=== PATIENT | female | born 1955 | race Caucasian/White ===

== ENCOUNTER → 2016-11-20 | Outpatient (CLI) | payer BC ==
--- NOTE | 2016-11-20 17:35 | MA ---
Screening Digital Mammogram With iCAD Indication: Routine screening. Technique: Standard cephalocaudal and mediolateral oblique projections are obtained. This examinati on is processed by the iCAD computer-aided detection system. Comparison: April 2015, March 2014, December 2012 and August 2011 Breast density: Type B. Findings: CAD was reviewed. No suspicious microcalcifications, mass, or architectural distortion. Impression: Negative mammogram BI-RADS: 1 - Negative Recommendation: Routine screening is recommended in one year. [facility] will send a result letter to the patient. Negative mammography should not preclude additional workup of a clinically suspicious finding. The patient's information is entered into a reminder system with a target due date for her next mammo gram.
== END ==
LOC: FIMAGING 13:23
DX: Z12.31 Encounter for screening mammogram for malignant neoplasm of breast (principal)
CPT/HCPCS: G0202

== ENCOUNTER → 2017-08-07 | Outpatient (CLI) | payer BC | LOC: FIMAGING 11:30 | DX: R22.1 Localized swelling, mass and lump, neck (principal) ==

== ENCOUNTER 2018-01-10 02:34 | Emergency (ER) | payer BC ==
[2018-01-10 02:46] VITALS: TEMP 97.5
[2018-01-10 02:47] VITALS: O2SAT 90
--- NOTE | 2018-01-10 03:51 | EDPHY ---
H & P Stated Complaint: rectal bleeding Time Seen by Provider: 01/10/18 02:57 HPI/ROS: Daughter provides sign language interpretation. HPI The patient presents with rectal bleeding which has been present since 6:00 p.m. Though has now mostly stopped. About 2 weeks ago she was diagnosed with an abnormal growth near her rectum by a associate professor of history. She was referred to a general surgeon, though has not ate a follow-up appointment. She tonight noticed spontaneous bleeding from the area. This was not painful at all. She has no prior history of similar. REVIEW OF SYSTEMS Constitutional: No fever, no chills. Eyes: No discharge. ENT: No sore throat. Cardiovascular: No chest pain, no palpitations. Respiratory: No cough, no shortness of breath. Gastrointestinal: No abdominal pain, no vomiting. Genitourinary: No hematuria. Musculoskeletal: No back pain. Skin: No rashes. Neurological: No headache. PMHx: Deafness, asthma, hypertension Soc Hx: Lives at home with family PHYSICAL General Appearance: Alert, no distress Eyes: Pupils equal and round no pallor or injection ENT, Mouth: Mucous membranes moist Respiratory: There are no retractions, lungs are clear to auscultation Cardiovascular: Regular rate and rhythm Gastrointestinal: Abdomen is soft and non-tender, no masses, bowel sounds normal Rectal: At approximately 2 o'clock about 5 cm from the anal verge there is a 2 cm hemorrhoid which is reddish purple, slightly firm, slightly tender to palpation Neurological: A&O, moves all extremities Skin: Warm and dry, no rashes Musculoskeletal: Neck is supple non tender Extremities: symmetrical, full range of motion Psychiatric: Patient is oriented X 3, there is no agitation Source: Patient Exam Limitations: No limitations - Personal History Current Tetanus/Diphtheria Vaccine: Unsure - Medical/Surgical History Hx Asthma: Yes Hx Chronic Respiratory Disease: No Hx Diabetes: No Hx Cardiac Disease: No Hx Renal Disease: No Hx Cirrhosis: No Hx Alcoholism: No Hx HIV/AIDS: No Hx Splenectomy or Spleen Trauma: No Other PMH: Deaf. asthma, copd, htn, cilia immune syndrome, FIBROMYALGIA, BRONCHIECISIS- NEEDS O2 - Social History Smoking Status: Never smoked Constitutional: Initial Vital Signs Temperature (C) 36.4 C 01/10/18 02:40 Heart Rate 74 01/10/18 02:40 Respiratory Rate 20 01/10/18 02:40 Blood Pressure 137/68 H 01/10/18 02:40 O2 Sat (%) 90 L 01/10/18 02:40 O2 Delivery Mode Room Air Allergies/Adverse Reactions: Penicillins Allergy (Unknown, Verified 01/10/18 02:38) Home Medications: Medication Instructions Recorded Levothyroxine [Synthroid] 25 mcg PO DAILY 06/27/11 Losartan Potassium 50 mg PO 06/27/11 Cyclobenzaprine 01/10/18 DULoxetine 01/10/18 Proair Hfa 01/10/18 Spironolactone 01/10/18 traMADol 01/10/18 Medical Decision Making Differential Diagnosis: 62-year-old female with 2 weeks of growth on her buttocks now presents with bleeding from this. On exam, it appears to be an external hemorrhoid which is thrombosed, however location is distal to the anal verge which is unusual. This could be a skin tag, however would not expect bleeding from this. Doubt abscess. Given that the patient is not having much pain or tenderness I will not excise the clot. I will refer the patient to Dr. Carson who is her primary general surgeon for further evaluation. She is happy with this plan. The bleeding has stopped. Departure - Departure Disposition: Home, Routine, Self-Care Clinical Impression: External hemorrhoid, bleeding Condition: Good Instructions: Hemorrhoids (ED) Additional Instructions: It appears that this indeed is a hemorrhoid. These can occasionally bleed, though rarely it is life threatening. If the bleeding happens again, you should apply gentle pressure. I do recommend that you follow up with Dr. Carson for further care for this. Referrals: KENDRA STAFFORD [Primary Care Provider] - As per Instructions Kendra Carson MD [Medical Doctor] - As per Instructions
[2018-01-10 03:59] VITALS: BP 130/64; PULSE 70; RESP 18
== END 2018-01-10 03:59 | disposition home or self-care (01) ==
DX: K64.4 Residual hemorrhoidal skin tags (principal); I10 Essential (primary) hypertension; J44.9 Chronic obstructive pulmonary disease, unspecified

== ENCOUNTER 2018-01-19 19:42 | Emergency (ER) | payer BC ==
--- NOTE | 2018-01-19 20:18 | EDPHY ---
H & P Stated Complaint: pt says had surg removal of cyst on coccyx 4.2, tonight sutures ruptured Time Seen by Provider: 01/19/18 20:18 HPI/ROS: CHIEF COMPLAINT: Surgical sutures came undone HISTORY OF PRESENT ILLNESS: This is a 62-year-old female who underwent removal of what was a cyst or a hemorrhoid (she is not sure and pathology is not available) on 01/14/2018. She presents tonight after 1 of the sutures came undone. She had bleeding from that site which has resolved. She is not in pain. She has not had fever. She is not aware of any swelling in this region. She is not having difficulty with bowel movements. REVIEW OF SYSTEMS: A ten point review of systems was performed and is negative with the exception of the items mentioned in the HPI. Past medical history: Deafness Past surgical history: Removal of mass from rectal area Social history: She is here with her 2 daughters. General Appearance: Alert. Vital signs reviewed. Focused exam performed. Respiratory: Lungs are clear to auscultation; no wheezes, rales, or rhonchi. Cardiovascular: Regular rate and rhythm; no murmur, rub, or gallop. Gastrointestinal: Abdomen is obese, soft and nontender. Rectal: Medial portion of her surgical incision with dehiscence and presumed loss of a suture at that site. There is no active bleeding. No tenderness, fluctuance, or surrounding erythema. Skin: Warm and dry, no rashes on exposed skin, normal color. Extremities: No lower extremity edema, no calf tenderness or swelling. Neurological: Alert and oriented. Moving all four extremities easily and equally. Psychiatric: Normal affect. - Medical/Surgical History Hx Asthma: Yes Hx Chronic Respiratory Disease: No Hx Diabetes: No Hx Cardiac Disease: Yes Hx Renal Disease: No Hx Cirrhosis: No Hx Alcoholism: No Hx HIV/AIDS: No Hx Splenectomy or Spleen Trauma: No Other PMH: Deaf. asthma, copd, htn, cilia immune syndrome, FIBROMYALGIA, BRONCHIECISIS- NEEDS O2 - Social History Smoking Status: Never smoked Constitutional: Initial Vital Signs Temperature (C) 37 C 01/19/18 19:47 Heart Rate 96 01/19/18 19:47 Respiratory Rate 18 01/19/18 19:47 Blood Pressure 163/87 H 01/19/18 19:47 O2 Sat (%) 91 L 01/19/18 19:47 O2 Delivery Mode Room Air Allergies/Adverse Reactions: Penicillins Allergy (Unknown, Verified 01/19/18 19:53) Home Medications: Medication Instructions Recorded Levothyroxine [Synthroid] 25 mcg PO DAILY 06/27/11 Losartan Potassium 50 mg PO 06/27/11 Cyclobenzaprine 01/10/18 DULoxetine 01/10/18 Proair Hfa 01/10/18 Spironolactone 01/10/18 traMADol 01/10/18 Medical Decision Making ED Course/Re-evaluation: Wound dehiscence, partial. I spoke with Dr. Gladys Jimenez who is covering for Dr. Johnson Carson. She does not feel that any intervention is required. Patient should follow up with Dr. Carson next week. The wound was redressed. All of the patient interactions were carried out with her daughter present providing sign language translation. Differential Diagnosis: I considered a differential diagnosis that includes but is not limited to wound dehiscence, persistent bleeding from surgical site, postoperative infection, hemorrhoid, constipation with straining a bowel movements. Departure - Departure Disposition: Home, Routine, Self-Care Clinical Impression: Partial wound dehiscence Condition: Good Instructions: Wound Dehiscence (ED) Additional Instructions: If you have any new or concerning problems--lots of bleeding, new pain--please be re-evaluated. Call Dr. Carson' office on Sunday morning and arrange an appointment with him this coming week so that he can check your wound. Referrals: JOHNSON STAFFORD [Primary Care Provider] - As per Instructions Johnson Carson MD [Medical Doctor] - As per Instructions
[2018-01-19 21:03] VITALS: BP 117/66
== END 2018-01-19 21:02 | disposition home or self-care (01) ==
DX: T81.30XA Disruption of wound, unspecified, initial encounter (principal); J44.9 Chronic obstructive pulmonary disease, unspecified; I10 Essential (primary) hypertension; Y82.8 Other medical devices associated with adverse incidents

== ENCOUNTER 2018-02-08 07:33 | Day surgery (SDC) | payer BC ==
--- NOTE | 2018-02-08 07:26 | PDHPUP ---
History & Physical Update H&P update statement: This history and physical update is based on an assessment of the patient which was completed after admission or registration (within 24 hours), but prior to the surgery/procedure. H&P update: H&P reviewed & patient examined, no change in patient's condition since H&P completed
[2018-02-08] MEDS ORDERED: LIDOCAINE 1% 2 ML INJ ID PRN (08:03)
[2018-02-08] MEDS ORDERED: LR 1,000 ML IV ONE (08:03)
[2018-02-08] MEDS ORDERED: ERTAPENEM 1 GM VIAL IV ONE (08:03)
--- NOTE | 2018-02-08 08:35 | CPEKG ---
Heart Rate: 70 RR Interval: 857 P-R Interval: 192 QRSD Interval: 88 QT Interval: 376 QTC Interval: 406 P Magnolia: 67 QRS Magnolia: 10 T Wave Magnolia: 39 EKG Severity - BORDERLINE ECG - EKG Impression: SINUS RHYTHM EKG Impression: BORDERLINE R WAVE PROGRESSION, ANTERIOR LEADS Electronically Signed By: Mehdi Tobar 09-Feb-2018 19:11:37
[2018-02-08] MEDS ORDERED: MIDAZOLAM 2 MG/2 ML VIAL IVP ONE (08:50)
[2018-02-08] MEDS ORDERED: BUPIVACAINE/EPI 0.5% 30 ML SDV ONE (08:50)
[2018-02-08] MEDS ORDERED: METHYLENE BLUE 0.5% 50 MG/10 ML AMP ONE (08:51)
[2018-02-08] MEDS ORDERED: BUPIVACAINE 0.5% 30 ML SDV ONE (08:51)
--- NOTE | 2018-02-08 08:53 | PDANEPAE ---
ANE History of Present Illness perirectal lession ANE Past Medical History - Cardiovascular History Hx Hypertension: Yes Hx Arrhythmias: No Hx Chest Pain: No Hx Coronary Artery / Peripheral Vascular Disease: No Hx CHF / Valvular Disease: No Hx Palpitations: No - Pulmonary History Hx COPD: Yes Hx Asthma/Reactive Airway Disease: Yes Hx Recent Upper Respiratory Infection: Yes Hx Oxygen in Use at Home: Yes O2 in Use at Home (L/minute): 2.L Hx Sleep Apnea: Yes Sleep Apnea Screening Result - Last Documented: Positive Pulmonary History Comment: CHRONIC BRONCITIS - Neurologic History Hx Cerebrovascular Accident: No Hx Seizures: No Hx Dementia: No - Endocrine History Hx Diabetes: No - Renal History Hx Renal Disorders: No - Liver History Hx Hepatic Disorders: No - Neurological & Psychiatric Hx Hx Neurological and Psychiatric Disorders: Yes Neurological / Psychiatric History Comment: FIBROMYALGIA - Cancer History Hx Cancer: No - Congenital Disorder History Hx Congenital Disorders: No - GI History Hx Gastrointestinal Disorders: No - Other Health History Other Health History: RECTAL TUMOR. CHRONIC SINUS PROBLEMS. PARTIAL DENTURE UPPER. LOWER LEG SWELLING - Chronic Pain History Chronic Pain: Yes (TAIL BONE) - Surgical History Prior Surgeries: sinus surgery ANE Review of Systems Review of Systems: - Exercise capacity METS (RN): 3 METS ANE Patient History - Allergies Allergies/Adverse Reactions: Penicillins Allergy (Unknown, Verified 02/07/18 14:37) Hives - Home Medications Home Medications: Albuterol [Proventil Inhaler HFA (*)] 1 - 2 puffs IH Q4H PRN 01/10/18 [Last Taken 02/07/18] Cyclobenzaprine [Flexeril 10 MG (*)] 10 mg PO HS 01/10/18 [Last Taken 02/06/18] DULoxetine [Cymbalta 60 MG (*)] 60 mg PO DAILY 01/10/18 [Last Taken 02/07/18] Spironolactone [Aldactone 50 MG (RX)] 50 mg PO DAILY 01/10/18 [Last Taken ] traMADol [Ultram 50 mg (*)] 50 mg PO BID PRN 01/10/18 [Last Taken 02/07/18] Cholecalciferol Vit D3 [Vitamin D3 (*)] 1,000 units PO DAILY 02/06/18 [Last Taken 02/07/18] Herbals/Supplements -Info Only 1 ea PO DAILY 02/06/18 [Last Taken 02/07/18] Levothyroxine [Synthroid 50 mcg (*)] 50 mcg PO DAILY06 02/06/18 [Last Taken ] Losartan Potassium [Cozaar 50 mg (*)] 50 mg PO DAILY 02/06/18 [Last Taken ] - NPO status NPO Since - Liquids (Date): 02/07/18 NPO Since - Solids (Date): 02/07/18 - Smoking Hx Smoking Status: Never smoked - Family Anes Hx Family Hx Anesthesia Complications: none ANE Labs/Vital Signs - Labs Result Diagrams: 02/08/18 08:30 - Vital Signs Blood Pressure: 157/84 Heart Rate: 91 Respiratory Rate: 16 O2 Sat (%): 91 Height: 160.02 cm Weight: 136.078 kg ANE Physical Exam - Airway Neck exam: decreased ROM Mallampati Score: Class 3 Mouth exam: poor dentition - Pulmonary Pulmonary: expiratory wheeze - Cardiovascular Cardiovascular: regular rate and rhythym - ASA Status ASA Status: IV ANE Anesthesia Plan Anesthesia Plan: general endotracheal anesthesia
[2018-02-08] MEDS ORDERED: ALBUTEROL 60 PUFFS/8 GM MDI IH ONE ×2 (08:56→09:15)
[2018-02-08] MEDS ORDERED: HYDROmorphONE/DILAUDID 2 MG/ML INJ ONE (08:56)
[2018-02-08] MEDS ORDERED: fentaNYL 100 MCG/2 ML INJ ONE ×2 (08:56→08:57)
[2018-02-08] MEDS ORDERED: PROPOFOL 200 MG/20 ML VIAL ONE (08:57)
[2018-02-08] MEDS ORDERED: HYDROGEN PEROXIDE 473 ML BOTTLE TP ONE (09:00)
[2018-02-08] MEDS ORDERED: ONDANSETRON 4 MG/2 ML VIAL IVP PRN (10:09)
[2018-02-08] MEDS ORDERED: ALBUTEROL 3 ML DEYVIAL IH PRN (10:09)
[2018-02-08] MEDS ORDERED: HYDROmorphONE/DILAUDID 2 MG/ML INJ IVP PRN (10:09)
[2018-02-08] MEDS ORDERED: PROMETHAZINE HCL 25 MG/ML INJ IVP PRN (10:09)
[2018-02-08] MEDS ORDERED: HYDROCODONE/APAP 5/325 TAB PO PRN (10:09)
[2018-02-08] MEDS ORDERED: NALOXONE HCL 0.4 MG/ML INJ IVP PRN (10:09)
[2018-02-08] MEDS ORDERED: fentaNYL 100 MCG/2 ML INJ IVP PRN (10:09)
[2018-02-08] MEDS ORDERED: ROCURONIUM 100 MG/10 ML VIAL ONE (10:24)
[2018-02-08] MEDS ORDERED: DEXAMETHASONE 4 MG/ML VIAL ONE (10:24)
[2018-02-08] MEDS ORDERED: ONDANSETRON 4 MG/2 ML VIAL ONE (10:24)
--- NOTE | 2018-02-08 10:33 | POSTANESTH ---
Post Anesthetic Evaluation Cardiovascular Status: Normal, Stable Respiratory Status: Normal, Stable Level of Consciousness/Mental Status: Can Participate in Eval Pain Control: Adequate, Prn Tx Ordered Nausea/Vomiting Control: Adequate, Prn Tx Ordered Complications Possibly Related to Anesthesia: None Noted
[2018-02-08 12:08] VITALS: BP 118/65
--- NOTE | 2018-03-03 03:55 | GOP ---
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 POSTOPERATIVE DIAGNOSIS: Basal cell carcinoma of the perineum, pathology pending. PROCEDURE PERFORMED: Wide excision with advancement closure of a perineal lesion. FINDINGS: The patient was found to have a previously excised nodule in the posterior perineum approx imately 3 inches from the anal canal. DESCRIPTION OF PROCEDURE: Patient was taken to the operating room, where she received satisfactory g eneral endotracheal anesthesia by Dr. Barrett. She was placed in the prone position with her buttocks taped apart. An elliptical skin incision was made to excise the previous biopsy site in the perineu m. Full-thickness excision was done. The specimen was appropriately marked and sent to Pathology. Hemostasis was carefully obtained. The wound was infiltrated with 0.5% Marcaine. The skin and subcu taneous tissue were elevated up bilaterally and advanced to close this defect, which was done with in terrupted 3-0 Vicryl sutures and interrupted 3-0 Prolene mattress sutures for the skin. Wound was dr grewal. She tolerated the procedure quite well. There were no complications. Blood loss negligible. Taken to recovery room in good condition. /[id number]/MODL
== END 2018-02-08 14:24 | disposition home or self-care (01) ==
LOC: F3N 07:33 → UNDOADMOB 07:33 → FSGY 07:33 → EDSTATUS 09:45 → FSGY 14:24
PROVIDERS: ATTEND Surgery
PROC: 0HB9XZZ Excision of Perineum Skin, External Approach (ICD-10-PCS; principal; 2018-02-08 08:45)
DX: C44.510 Basal cell carcinoma of anal skin (principal); J44.9 Chronic obstructive pulmonary disease, unspecified; M79.7 Fibromyalgia; Z88.0 Allergy status to penicillin
CPT/HCPCS: J1100; J1170; J1335; J2250; J2405; J2704; J3010; Q9968

== ENCOUNTER 2018-03-13 18:17 | Emergency (ER) | payer BC ==
--- NOTE | 2018-03-13 18:35 | EDPHY ---
H & P Stated Complaint: increasing edema sent to r/o chf Time Seen by Provider: 03/13/18 18:35 - Personal History Current Tetanus Diphtheria and Acellular Pertussis (TDAP): Unsure - Medical/Surgical History Hx Asthma: Yes Hx Chronic Respiratory Disease: No Hx Diabetes: No Hx Cardiac Disease: Yes Hx Renal Disease: No Hx Cirrhosis: No Hx Alcoholism: No Hx HIV/AIDS: No Hx Splenectomy or Spleen Trauma: No Other PMH: Deaf. asthma, copd, htn, cilia immune syndrome, FIBROMYALGIA, BRONCHIECISIS- NEEDS O2 - Social History Smoking Status: Never smoked Constitutional: Initial Vital Signs Temperature (C) 36.6 C 03/13/18 18:20 Heart Rate 69 03/13/18 18:20 Respiratory Rate 18 03/13/18 18:20 Blood Pressure 143/68 H 03/13/18 18:20 O2 Sat (%) 93 03/13/18 18:20 O2 Delivery Mode Nasal Cannula O2 (L/minute) 2 Allergies/Adverse Reactions: Penicillins Allergy (Unknown, Verified 03/13/18 18:20) Hives Home Medications: Medication Instructions Recorded Albuterol [Proventil Inhaler HFA 1 - 2 puffs IH Q4H PRN 01/10/18 (*)] Cyclobenzaprine [Flexeril 10 MG 10 mg PO HS 01/10/18 (*)] DULoxetine [Cymbalta 60 MG (*)] 60 mg PO DAILY 01/10/18 Spironolactone [Aldactone 50 MG 50 mg PO DAILY 01/10/18 (RX)] traMADol [Ultram 50 mg (*)] 50 mg PO BID PRN 01/10/18 Cholecalciferol Vit D3 [Vitamin D3 1,000 units PO DAILY 02/06/18 (*)] Herbals/Supplements -Info Only 1 ea PO DAILY 02/06/18 Levothyroxine [Synthroid 50 mcg 50 mcg PO DAILY06 02/06/18 (*)] Losartan Potassium [Cozaar 50 mg 50 mg PO DAILY 02/06/18 (*)] Hydrocodone/APAP 5/325 [[place] 1 - 2 tab PO Q4HRS PRN #30 tab 02/08/18 5/325 (*)] Cephalexin [Keflex (RX)] 500 mg PO TID #30 cap 03/13/18 Medical Decision Making - Diagnostics Imaging Results: Imaging Impressions Chest X-Ray 03/13/18 18:44 Impression: Peribronchial wall thickening bilaterally which is stable and can be seen with bronchitis, acute or chronic. Patient also has history of bronchiectasis. Opacification in the left lung base is stable and has been shown to be chronic scarring and the underlying bronchial wall thickening on comparison CT. Imaging: I viewed and interpreted images myself ED Course/Re-evaluation: CHIEF COMPLAINT: Shortness of breath HISTORY OF PRESENT ILLNESS: This patient is a pleasant 62 y/o female with history of bronchiectasis arriving with her daughter complaining of worsening shortness of breath and peripheral edema. She was sent by her PCP Dr. Albert to rule out congestive heart failure due to her edema. She is usually short of breath as she has asthma and bronchiectasis. She usually takes spironolactone for peripheral edema, but this has been worsening over two weeks and is generally worse on the right but is now pronounced bilaterally. In the last week, the patient has had worsening shortness of breath. She had a cardiac workup last year which was normal per the patient. It is difficult for her to tell if she is having chest pain or pressure due to her lung discomfort, but she does not think she has any unusual sensation in her chest. She and her daughter mention that [place] , [place], and has recently needed to increase her home oxygen from 2L to 3L on occasion. The patient denies any recent illness or trauma. No fever, chills, vomiting, diarrhea, urinary complaints, or other associated symptoms. HPI primarily obtained through daughter interpreting at bedside as the patient is deaf. educational interpreter is en route, but the patient's daughter is more than capable of translating for the patient. REVIEW OF SYSTEMS: A 10 point review of systems was performed and is negative with the exception of the elements mentioned in the history of present illness. PHYSICAL EXAM: HR, BP, O2 Sat, RR. Temp noted General Appearance: Alert, well hydrated, appropriate, and non-toxic appearing. Head: Atraumatic without scalp tenderness or obvious injury Eyes: Pupils equal, round, reactive to light and accommodation, EOMI, no trauma , no injection. Ears: Clear bilaterally, no perforation, normal landmarks Nose: Atraumatic, no rhinorrhea, clear. Throat: There is no erythema or exudates, no lesions, normal tonsils, mucus membranes moist. Neck: Supple, 2+ carotid upstroke, nontender, no lymphadenopathy. Respiratory: No retractions, no distress, no wheezes, and no accessory muscle use. Lungs are clear to auscultation bilaterally. Cardiovascular: Regular rate and rhythm, no murmurs, rubs, or gallops. Bilateral carotid, radial, dorsalis pedis, and posterior tibial pulses intact. Good capillary refill all extremities. Gastrointestinal: Abdomen is soft, nontender, non-distended, no masses, no rebound, no guarding, no peritoneal signs. Musculoskeletal: Normal active ROM of all extremities, atraumatic. Neurological: Alert, appropriate, and interactive. The patient has normal DTRs and non-focal cranial nerves, motor, sensory, and cerebellar exam. Skin: No rashes, good turgor, no nodules on palpation. Past medical history: Deaf. Asthma, COPD, Bronchiectasis (Home oxygen at 2L) Hypertension, Fibromyalgia Past surgical history: Noncontributory Family history: Noncontributory. Social history: Daughter at bedside. Lives in [place]. . Employed. DIAGNOSTICS/PROCEDURES/CRITICAL CARE TIME: The 12 lead EKG was interpreted by myself. See hard copy and/or "tracemaster" electronic copy for interpretation. Sinus rhythm rate 72. DIFFERENTIAL DIAGNOSIS: The differential diagnosis for the patient's shortness of breath and hypoxemia included but was not limited to pneumonia, myocardial infarction, acute mountain sickness, high altitude pulmonary edema, congestive heart failure, and pulmonary embolus. MEDICAL DECISION MAKIN62 year old female presents with shortness of breath and peripheral edema. Lungs are clear to auscultation. Patient has 3+ edema in lower extremities bilaterally. Plan for EKG, CXR, laboratory studies including CBC, chemistries.. Reviewed imaging and laboratory studies. CXR normal, shows stable scarring, no evidence of acute disease processes. Laboratory studies unremarkable. EKG shows sinus rhythm. No evidence of heart dysfunction, kidney function normal. The patient's SpO2 is 97% on her regular 2L here in the emergency department. This patient may have some right-sided hear failure causing worsening edema in her lower extremities. I see no acute cause for her shortness of breath today beyond her existing bronchiectasis. Her oxygen saturation has remained satisfactory throughout her stay in the ED today. 20:02 Reassessed patient. educational interpreter at bedside. Cellulitis in RLE due to swelling. Plan to administer Keflex. She plans on travelling to [place] this week and is safe to drive there tomorrow. She will follow up with her PCP or cardiology when she return for an echocardiogram. - Data Points Laboratory Results: Laboratory Results 03/13/18 18:50 03/13/18 18:50 03/13/18 03/13/18 18:50 18:50 WBC 10.36 10^3/uL H 10^3/uL (3.80-9.50) RBC 4.40 10^6/uL 10^6/uL (4.18-5.33) Hgb 13.1 g/dL g/dL (12.6-16.3) Hct 40.1 % % (38.0-47.0) MCV 91.1 fL fL (81.5-99.8) MCH 29.8 pg pg (27.9-34.1) MCHC 32.7 g/dL g/dL (32.4-36.7) RDW 13.0 % % (11.5-15.2) Plt Count 280 10^3/uL 10^3/uL (150-400) MPV 10.0 fL fL (8.7-11.7) Neut % (Auto) 56.7 % % (39.3-74.2) Lymph % (Auto) 28.8 % % (15.0-45.0) [place] % (Auto) 9.4 % % (4.5-13.0) Eos % (Auto) 3.8 % % (0.6-7.6) Baso % (Auto) 0.9 % % (0.3-1.7) Nucleat RBC Rel Count 0.0 % % (0.0-0.2) Absolute Neuts (auto) 5.89 10^3/uL 10^3/uL (1.70-6.50) Absolute Lymphs (auto) 2.98 10^3/uL 10^3/uL (1.00-3.00) Absolute Monos (auto) 0.97 10^3/uL H 10^3/uL (0.30-0.80) Absolute Eos (auto) 0.39 10^3/uL 10^3/uL (0.03-0.40) Absolute Basos (auto) 0.09 10^3/uL 10^3/uL (0.02-0.10) Absolute Nucleated RBC 0.00 10^3/uL 10^3/uL (0-0.01) Immature Gran % 0.4 % % (0.0-1.1) Immature Gran # 0.04 10^3/uL 10^3/uL (0.00-0.10) Sodium 142 mEq/L mEq/L (135-145) Potassium 4.4 mEq/L mEq/L (3.3-5.0) Chloride 101 mEq/L mEq/L (97-110) Carbon Dioxide 28 mEq/l mEq/l (22-31) Anion Gap 13 mEq/L mEq/L (8-16) BUN 21 mg/dL mg/dL (7-23) Creatinine 0.9 mg/dL mg/dL (0.6-1.0) Estimated GFR > 60 Glucose 88 mg/dL mg/dL (70-100) Calcium 9.9 mg/dL mg/dL (8.5-10.4) Magnesium 2.0 mg/dL mg/dL (1.6-2.3) Troponin I < 0.012 ng/mL ng/mL (0.000-0.034) NT-Pro-B Natriuret Pep 136 pg/mL H pg/mL (0-125) Medications Given: Discontinued Medications Cephalexin (Keflex 500 Mg Prepack#4) 1 btl TAKEHOME EDNOW ONE PRN Reason: Protocol Stop: 03/13/18 19:59 Last Admin: 03/13/18 20:05 Dose: 1 btl Cephalexin HCl (Keflex) 500 mg PO EDNOW ONE PRN Reason: Protocol Stop: 03/13/18 19:59 Last Admin: 03/13/18 20:05 Dose: 500 mg Departure - Departure Disposition: Home, Routine, Self-Care Clinical Impression: Peripheral edema, Possible right-sided heart failure, Cellulitis of right lower extremity Condition: Good Instructions: Cephalexin (By mouth), Cellulitis (ED), Edema (ED) Additional Instructions: 1. Follow up with your primary care provider for further evaluation. You may wish to follow up with cardiology as well. Get a repeat echocardiogram when you return from your trip. 2. Return to the emergency department for fever, chest pain, shortness of breath or other worsening of condition. 3. Continue taking spironolactone as prescribed. Take your antibiotics as prescribed. Keep your right leg elevated above the level of your heart when possible. Referrals: KENRDA ALBERT [Primary Care Provider] - As per Instructions Misha Farris MD [Medical Doctor] - As per Instructions Prescriptions: Cephalexin [Keflex (RX)] 500 mg PO TID #30 cap Report Scribed for: Vincent Guerrero Report Scribed by: Treva Stephens Date of Report: 03/13/18 Time of Report: 20:17
--- NOTE | 2018-03-13 18:55 | CPEKG ---
Heart Rate: 72 RR Interval: 833 P-R Interval: 188 QRSD Interval: 86 QT Interval: 388 QTC Interval: 425 P Whitman: 66 QRS Whitman: 14 T Wave Whitman: 31 EKG Severity - NORMAL ECG - EKG Impression: SINUS RHYTHM Electronically Signed By: Germania Noriega 14-Mar-2018 13:38:10
[2018-03-13 19:03] LABS: PLATELET COUNT 280 10^3/uL (150-400)
[2018-03-13] MEDS ORDERED: CEPHALEXIN 500MG PREPACK#4 BTL TAKEHOME ONE (19:58)
[2018-03-13] MEDS ORDERED: CEPHALEXIN 500 MG CAP PO ONE (19:58)
[2018-03-13 20:06] VITALS: BP 136/81
== END 2018-03-13 20:21 | disposition home or self-care (01) ==
DX: L03.115 Cellulitis of right lower limb (principal); R60.0 Localized edema; J44.9 Chronic obstructive pulmonary disease, unspecified; I10 Essential (primary) hypertension

== ENCOUNTER → 2018-08-20 | Outpatient (CLI) | payer BC | LOC: FIMAGING 14:17 | PROVIDERS: ATTEND Obstetrics & Gynecology Gynecology | DX: Z12.31 Encounter for screening mammogram for malignant neoplasm of breast (principal) ==

== ENCOUNTER 2018-11-01 06:36 | Day surgery (SDC) | payer BC ==
--- NOTE | 2018-11-01 07:39 | PDANEPAE ---
ANE Past Medical History - Cardiovascular History Hx Hypertension: Yes Hx Arrhythmias: No Hx Chest Pain: No Hx Coronary Artery / Peripheral Vascular Disease: No Hx CHF / Valvular Disease: No Hx Palpitations: Yes Cardiovascular History Comment: PFO. ATRIAL SEPTAL DEFECT - Pulmonary History Hx COPD: Yes Hx Asthma/Reactive Airway Disease: Yes Hx Recent Upper Respiratory Infection: Yes Hx Oxygen in Use at Home: Yes Hx Sleep Apnea: Yes Sleep Apnea Screening Result - Last Documented: Positive Pulmonary History Comment: CILIARY DYSKINESIA DX 1978. BRONCHIECTASIS. ON ANTIBIOTICS 09/2018 RESIDUAL COUGH - Neurologic History Hx Cerebrovascular Accident: No Hx Seizures: No Hx Dementia: No - Endocrine History Hx Diabetes: No Hypothyroid: Yes Hyperthyroid: No Obesity: severe Endocrine History Comment: HYPOTHYROID - Renal History Hx Renal Disorders: No - Liver History Hx Hepatic Disorders: No - Neurological & Psychiatric Hx Hx Neurological and Psychiatric Disorders: No Neurological / Psychiatric History Comment: FIBROMYALGIA - Cancer History Hx Cancer: Yes Cancer History Comment: RECTAL 2018 - Congenital Disorder History Hx Congenital Disorders: No - GI History Hx Gastrointestinal Disorders: No - Other Health History Other Health History: FIBROMYALGIA. CHRONIC SINUS PROBLEMS. UPPER PARTIAL. LOWER LEG SWELLING/SUPPORT HOSE - Chronic Pain History Chronic Pain: Yes (FIBROMYALGIA) - Surgical History Prior Surgeries: EXC RAFAEL ANAL CA 02/08/18. sinus surgery ANE Review of Systems Review of Systems: - Exercise capacity METS (RN): 2 METS ANE Patient History - Allergies Allergies/Adverse Reactions: Penicillins Allergy (Unknown, Verified 03/13/18 18:20) Hives - Home Medications Home Medications: Albuterol [Proventil Inhaler HFA (*)] 1 - 2 puffs IH Q4H PRN 01/10/18 [Last Taken 02/07/18] Cyclobenzaprine [Flexeril 10 MG (*)] 10 mg PO HS 01/10/18 [Last Taken 02/06/18] DULoxetine [Cymbalta 60 MG (*)] 60 mg PO DAILY AT 2PM 01/10/18 [Last Taken 02/07] Spironolactone [Aldactone 50 MG (RX)] 50 mg PO DAILY AT 2PM 01/10/18 [Last Taken 02/07/18] traMADol [Ultram 50 mg (*)] 50 mg PO BID PRN 01/10/18 [Last Taken 02/07/18] Cholecalciferol Vit D3 [Vitamin D3 (*)] 1,000 units PO DAILY 02/06/18 [Last Taken 02/07/18] Herbals/Supplements -Info Only 1 ea PO DAILY 02/06/18 [Last Taken 02/07/18] Levothyroxine [Synthroid 50 mcg (*)] 50 mcg PO DAILY06 02/06/18 [Last Taken ] Losartan Potassium [Cozaar 50 mg (*)] 50 mg PO DAILY AT 2PM 02/06/18 [Last Taken 02/07/18] - NPO status NPO Since - Liquids (Date): 10/31/18 NPO Since - Liquids (Time): 22:00 NPO Since - Solids (Date): 10/31/18 NPO Since - Solids (Time): 20:00 - Smoking Hx Smoking Status: Never smoked - Family Anes Hx Family Hx Anesthesia Complications: none ANE Labs/Vital Signs - Vital Signs Blood Pressure: 128/68 Heart Rate: 77 Respiratory Rate: 16 O2 Sat (%): 93 Height: 160.02 cm Weight: 136.078 kg ANE Physical Exam - Airway Neck exam: decreased ROM Mallampati Score: Class 2 Mouth exam: poor dentition - Pulmonary Pulmonary: reduced air movement, expiratory wheeze - Cardiovascular Cardiovascular: regular rate and rhythym - ASA Status ASA Status: III ANE Anesthesia Plan Anesthesia Plan: general endotracheal anesthesia
[2018-11-01] MEDS ORDERED: MIDAZOLAM 2 MG/2 ML VIAL IVP ONE (07:41)
[2018-11-01] MEDS ORDERED: LR 1,000 ML IV ONE (07:44)
[2018-11-01] MEDS ORDERED: SUGAMMADEX SODIUM 200 MG/2 ML VIAL IVP ONE (08:01)
[2018-11-01] MEDS ORDERED: PROPOFOL/EMULSION 500 MG/50 ML BOTTLE IV ONE (08:01)
[2018-11-01] MEDS ORDERED: LIDOCAINE 2% 5 ML SDV ONE (08:01)
[2018-11-01] MEDS ORDERED: ROCURONIUM 100 MG/10 ML VIAL ONE (08:01)
[2018-11-01] MEDS ORDERED: fentaNYL 100 MCG/2 ML INJ ONE (08:01)
[2018-11-01] MEDS ORDERED: KETOROLAC 30 MG/1 ML SDV ONE (09:16)
[2018-11-01] MEDS ORDERED: NALOXONE HCL 0.4 MG/ML INJ IVP PRN (09:46)
[2018-11-01] MEDS ORDERED: ONDANSETRON 4 MG/2 ML VIAL IVP PRN (09:46)
[2018-11-01] MEDS ORDERED: fentaNYL 100 MCG/2 ML INJ IVP PRN (09:46)
--- NOTE | 2018-11-01 09:46 | POSTANESTH ---
Post Anesthetic Evaluation Cardiovascular Status: Normal, Stable Respiratory Status: Similar to Pre-op Cond. Level of Consciousness/Mental Status: Can Participate in Eval Pain Control: Adequate, Prn Tx Ordered Nausea/Vomiting Control: Adequate, Prn Tx Ordered Complications Possibly Related to Anesthesia: None Noted
--- NOTE | 2018-11-01 10:38 | POSTOPPROG ---
Post Op Note Date of Operation: 11/01/18 Surgeon: Lupis Salinas Anesthesiologist: Kristi Nevarez Anesthesia: GET(General Endotracheal) Pre-op Diagnosis: PMB,DUB,polyps Post-op Diagnosis: same Indication: as above Procedure: H/S polypectomy Findings: multiple posterior wall polyps Inf/Abcess present in the surg proc area at time of surgery?: No
[2018-11-01 10:57] VITALS: BP 137/74
--- NOTE | 2018-11-01 15:12 | GOP ---
DATE OF OPERATION: 11/01/2018 SURGEON: Lupis Salinas MD ANESTHESIA: General endotracheal. ANESTHESIOLOGIST: Dr. Nevarez. PREOPERATIVE DIAGNOSIS: 1. Postmenopausal bleeding. 2. Endometrial polyps. POSTOPERATIVE DIAGNOSIS: 1. Postmenopausal bleeding. 2. Endometrial polyps. PROCEDURE PERFORMED: Hysteroscopic polypectomy. FINDINGS: Several posterior wall polyps and several polyps in the tubal ostia, otherwise normal-appe aring uterus. ESTIMATED BLOOD LOSS: Minimal. INDICATIONS: Patient is a 63-year-old G2, P2, who has gone through menopause several years ago, was seen in September 2018 with an onset of very heavy bleeding. This was out of the blue, and she is not on hormone therapy. She underwent a Vabra biopsy, and this showed negative tissue but positive for polyps. She also had an ultrasound done and attempted sonohysterogram, and this showed thickened irr egular lining suggestive of endometrial tissue and polyps. DESCRIPTION OF PROCEDURE: With informed consent signed, patient taken to the operating room, placed under general anesthesia without complication, placed in the low dorsal lithotomy position and preppe d and draped in usual sterile fashion. A speculum was placed in the vagina. Tenaculum placed on the anterior lip of the cervix. Cervix dilated to 7 mm, and 6 mm hysteroscope placed in the uterine cav ity. Findings as noted above. Resection of the above tissue was done with the [employer]ida lear morcellator until all of the endometrial tissue had been removed. Net fluid deficit was 150 cc. Once the procedure was completed, the patient was placed in the supine position, awakened in the op erating room, taken to the recovery room in stable condition, tolerating the procedure well. COMPLICATIONS: None. /[id number]/MODL
== END 2018-11-01 11:00 | disposition home or self-care (01) ==
LOC: FSGY 06:36
PROVIDERS: ATTEND Obstetrics & Gynecology Gynecology
PROC: 0UB98ZZ Excision of Uterus, Via Natural or Artificial Opening Endoscopic (ICD-10-PCS; principal; 2018-11-01 08:00)
DX: N95.0 Postmenopausal bleeding (principal); N84.0 Polyp of corpus uteri
CPT/HCPCS: 58558; C1782; J1885; J2250; J2704; J3010